=== PATIENT | female | born 1965 | race Caucasian/White ===

== ENCOUNTER 2016-12-13 14:39 | Inpatient (IN) | payer MEDICAID, MEDICARE ==
[~2016-12-13] VITALS: Ht 160 cm; Wt 107.6 kg
[2016-12-13] MEDS ORDERED: SODIUM CHLORIDE FLUSH 10ML SYR IVF ONE (15:00)
[2016-12-13] MEDS ORDERED: ALBUTEROL SULFATE 2.5 MG/3 ML ONE ×2 (15:11→15:17)
[2016-12-13] MEDS: ALBUTEROL SULFATE 2.5 MG/3 ML NPPB SCH ×2 (15:16→15:18)
[2016-12-13] MEDS ORDERED: ZOLP10TA5 PO (15:21)
[2016-12-13] MEDS ORDERED: CLON-364 PO (15:21)
[2016-12-13] MEDS ORDERED: DILT30TA33 PO (15:21)
[2016-12-13] MEDS ORDERED: GABA100C8 PO (15:21)
[2016-12-13] MEDS ORDERED: PARO40TA3 PO (15:21)
[2016-12-13] MEDS ORDERED: HYDR25TA11 PO (15:21)
[2016-12-13] MEDS ORDERED: TRAM50TA2 PO (15:21)
[2016-12-13] MEDS ORDERED: PLEASE ENTER HEIGHT AND WEIGHT MC SCH (15:30)
[2016-12-13 15:33] LABS: ABG COLLECTION SITE LEFT RADIAL; COLLATERAL CIRCULATION TESTING NORMAL
[2016-12-13 15:43] LABS: ASPARTATE AMINO TRANSFERASE 29 U/L (15-37); BLOOD UREA NITROGEN 6 mg/dL (7-18)
[2016-12-13 15:48] LABS: IS PT STATUS REG ER OR PRE ER? YES
[2016-12-13] MEDS ORDERED: OMNIPAQUE 350 MG/ML, 100ML BOTTLE ONE (17:32)
[2016-12-13] MEDS ORDERED: LEVOFLOXACIN/PMX 750MG/150ML 150 ML ONE (18:23)
[2016-12-13] MEDS ORDERED: LEVOFLOXACIN/PMX 750MG/150ML 150 ML IV ONE (18:30)
[2016-12-13] MEDS ORDERED: ENALAPRILAT 1.25 MG/ML, 2ML IVPush PRN (20:00)
[2016-12-13] MEDS ORDERED: BISACODYL 10 MG SUPP PR PRN (20:00)
[2016-12-13] MEDS ORDERED: DOCUSATE 100 MG CAPSULE PO PRN (20:00)
[2016-12-13] MEDS ORDERED: ONDANSETRON ODT 4 MG PO PRN (20:00)
[2016-12-13] MEDS ORDERED: ACETAMINOPHEN 325 MG TABLET PO PRN (20:00)
[2016-12-13] MEDS ORDERED: POLYETHYLENE GLYCOL 17 GM PACKET PO PRN (20:00)
[2016-12-13] MEDS ORDERED: TRAMADOL MC SCH (21:00)
[2016-12-13] MEDS: ENOXAPARIN 40 MG/0.4 ML SQ SCH (22:14)
[2016-12-13] MEDS: GABAPENTIN 100 MG CAPSULE PO SCH (22:14)
[2016-12-13] MEDS: DILTIAZEM 30 MG TABLET PO SCH (22:14)
[2016-12-13] MEDS: TRAZODONE 50MG TABLET PO PRN (22:15)
[2016-12-14] MEDS ORDERED: ALBUTEROL SULFATE 2.5 MG/3 ML NPPB PRN
[2016-12-14] MEDS: CEFTRIAXONE PMX 2GM/50ML 50 ML IV SCH (00:09)
[2016-12-14] MEDS: AZITHROMYCIN 500 MG in SODIUM CHLORIDE 0.9% 250 ML IV SCH (00:30)
[2016-12-14] MEDS: TRAZODONE 50MG TABLET PO PRN (01:31)
[2016-12-14 01:48] VITALS: BP 116/67
[2016-12-14 02:00] VITALS: BP 121/76
[2016-12-14 05:33] LABS: ASPARTATE AMINO TRANSFERASE 28 U/L (15-37); BLOOD UREA NITROGEN 10 mg/dL (7-18)
[2016-12-14 05:42] LABS: DIFF TOTAL CELLS COUNTED 100 CELL DIFF
[2016-12-14 05:43] LABS: VERIFY COUNTS? YES
[2016-12-14 05:44] LABS: POLYCHROMASIA 1+
[2016-12-14 07:43] VITALS: BP 101/64
[2016-12-14] MEDS: GABAPENTIN 100 MG CAPSULE PO SCH ×3 (08:30→20:44)
[2016-12-14] MEDS: PAROXETINE 20 MG TABLET PO SCH (08:30)
[2016-12-14] MEDS: DILTIAZEM 30 MG TABLET PO SCH ×2 (08:30→20:45)
[2016-12-14 11:00] LABS: RHEUMATOID FACTOR SCREEN NEGATIVE (NEGATIVE)
[2016-12-14 12:33] LABS: ANA SCREEN NEGATIVE (Negative)
[2016-12-14 14:30] VITALS: BP 114/76
[2016-12-14] MEDS: FLUTICASONE/VILANTEROL 200-25MCG/INH INH SCH (17:45)
[2016-12-14] MEDS: GUAIFENESIN ER 600 MG TABLET PO SCH (17:45)
[2016-12-14 20:00] VITALS: BP 99/62
[2016-12-14] MEDS: ENOXAPARIN 40 MG/0.4 ML SQ SCH (20:44)
[2016-12-14] MEDS: FLUTICASONE NASAL SPRAY 16GM NAS SCH (20:55)
[2016-12-15] MEDS: CEFTRIAXONE PMX 2GM/50ML 50 ML IV SCH (00:30)
[2016-12-15] MEDS: AZITHROMYCIN 500 MG in SODIUM CHLORIDE 0.9% 250 ML IV SCH (01:22)
[2016-12-15 02:00] VITALS: BP 127/84
[2016-12-15 05:00] VITALS: BP 127/84
[2016-12-15] MEDS: GUAIFENESIN ER 600 MG TABLET PO SCH ×2 (05:37→18:00)
[2016-12-15] MEDS: PAROXETINE 20 MG TABLET PO SCH (08:28)
[2016-12-15] MEDS: GABAPENTIN 100 MG CAPSULE PO SCH ×3 (08:29→22:17)
[2016-12-15] MEDS: DILTIAZEM 30 MG TABLET PO SCH ×2 (08:29→21:51)
[2016-12-15] MEDS: FLUTICASONE/VILANTEROL 200-25MCG/INH INH SCH (08:29)
[2016-12-15 09:14] VITALS: BP 110/78
[2016-12-15] MEDS ORDERED: CEFD300C37 PO (11:16)
[2016-12-15] MEDS ORDERED: AZIT500T PO (11:16)
[2016-12-15] MEDS: FLUTICASONE NASAL SPRAY 16GM NAS SCH ×2 (11:20→21:51)
[2016-12-15 15:09] VITALS: BP 127/81
[2016-12-15] MEDS ORDERED: PNEUMOCOCCAL 23 VACCINE IM-VACC ONE (16:30)
[2016-12-15 20:00] VITALS: BP 119/80
[2016-12-15] MEDS: ENOXAPARIN 40 MG/0.4 ML SQ SCH (20:00)
[2016-12-15] MEDS: TRAZODONE 50MG TABLET PO PRN (23:40)
[2016-12-16] MEDS: CEFDINIR 300 MG CAPSULE PO SCH ×2 (01:28→09:15)
[2016-12-16 02:00] VITALS: BP 130/85
[2016-12-16] MEDS: GUAIFENESIN ER 600 MG TABLET PO SCH (05:44)
[2016-12-16 07:10] VITALS: BP 119/84
[2016-12-16] MEDS ORDERED: AZITHROMYCIN 500 MG TABLET PO SCH ×2 (09:00)
[2016-12-16] MEDS: DILTIAZEM 30 MG TABLET PO SCH (09:14)
[2016-12-16] MEDS: FLUTICASONE NASAL SPRAY 16GM NAS SCH (09:15)
[2016-12-16] MEDS: FLUTICASONE/VILANTEROL 200-25MCG/INH INH SCH (09:15)
[2016-12-16] MEDS: GABAPENTIN 100 MG CAPSULE PO SCH (09:15)
[2016-12-16] MEDS: PAROXETINE 20 MG TABLET PO SCH (09:15)
== END 2016-12-16 14:36 | disposition home or self-care (01) | DRG 871 ==
LOC: ED 18:14 → EDIP 18:28 → 4WST 20:47
PROVIDERS: ADMIT Internal Medicine; ATTEND Internal Medicine
DX: A41.9 Sepsis, unspecified organism (principal); J96.01 Acute respiratory failure with hypoxia; J15.9 Unspecified bacterial pneumonia; J45.901 Unspecified asthma with (acute) exacerbation; E66.01 Morbid (severe) obesity due to excess calories; E88.09 Other disorders of plasma-protein metabolism, not elsewhere classified; F41.9 Anxiety disorder, unspecified; I10 Essential (primary) hypertension; M79.7 Fibromyalgia; N30.90 Cystitis, unspecified without hematuria; H66.90 Otitis media, unspecified, unspecified ear; B96.20 Unspecified Escherichia coli [E. coli] as the cause of diseases classified elsewhere; Z99.81 Dependence on supplemental oxygen; Z23 Encounter for immunization; Z90.49 Acquired absence of other specified parts of digestive tract; Z88.0 Allergy status to penicillin; Z82.49 Family history of ischemic heart disease and other diseases of the circulatory system
CPT/HCPCS: 36415; 36600; 71010; 71275; 80053; 81001; 82803; 83605; 83735; 83880; 84439; 84443; 84484; 85025; 85379; 86038; 86430; 87040; 87077; 87086; 87186; 90732; 93005; 94640; 96365; J0456; J0696; J1650; J1956; J7613; Q9967; J7050; J7512; Q0177